=== PATIENT | male | born 1935 | race Caucasian/White ===

== ENCOUNTER → 2016-11-30 | Outpatient (CLI) | payer OTHER, MEDICARE ==
[~2016-11-30] VITALS: Ht 177.8 cm; Wt 98.9 kg
[~2016-11-30] MED LIST: BENICAR40 MG PO; BUMETANIDE0.25 MG/1 PO; FENOFIBRATE160 MG PO; GLUCOPHAGE XR500 MG PO; PRAVACHOL40 MG PO; PROPRANOLOL 1010 MG PO; UROCIT-K5 ME1 PO
--- NOTE | ~2016-11-30 | H ---
[facility] [place] [place] [address] HISTORY AND PHYSICAL Name: SPENCER WELDON Room #: REG BHAVIK MartinezJacklyn#: [id number] Admission: 11/30/16 Attend Phys: Johnson Wyman MD, Discharge: Date of : 36 Report #: [id number] THIS REPORT FOR: //name// CC: Johnson Lay DO DATE OF SERVICE: 11/30/2016 HISTORY OF PRESENT ILLNESS: An 81-year-old male admitted today for cardiac catheterization. He has been having some accelerating anginal symptoms. He does have documented coronary artery disease with a prior LAD stent in 2007. There has been decrease in exercise tolerance. Ejection fraction has been fairly well preserved. Nuclear stress testing suggests there has been a fair amount of ischemia noted in the mid inferior lateral basilar wall consistent with possible circumflex distribution and this was a definite change on his nuclear studies from April 2013. He has been compliant with medications. He is not terribly active. He is a diabetic and has held his metformin for this procedure. He is also on Bumex, potassium, Inderal 10 b.i.d., pravastatin 40, Benicar 40 and a baby aspirin. PAST MEDICAL HISTORY: Positive for coronary artery disease with a stent placement, diabetes, hypertension, hypercholesterolemia, prostate cancer, benign intention tremor, macular degeneration, DJD. FAMILY HISTORY: Mother was a diabetic. There is no other premature coronary disease. SOCIAL HISTORY: He is , never tobacco, no alcohol use. He is retired. ALLERGIES: Furosemide. REVIEW OF SYSTEMS: Essentially negative except for some occasional bowel issues and hesitancy. PHYSICAL EXAMINATION: VITAL SIGNS: Blood pressure is 180/106, pulse 69. HEENT: Eyes reveal xanthelasmas. Pharynx is clear. NECK: Shows preserved upstrokes without JVD or bruits. LUNGS: Clear. CARDIAC: Regular rate and rhythm, S1, S2. ABDOMEN: Slightly obese, nontender. EXTREMITIES: Reveal trace of edema. His pulses were intact. NEUROLOGIC: Nonfocal. There was a subtle resting tremor. MUSCULOSKELETAL: Generalized arthritic changes. SKIN: Warm and dry without xanthoma or ulcer. [facility] [address] [place] [address] HISTORY AND PHYSICAL Name: SPENCER WELDON Room #: REG [facility] Juan.#: [id number] Admission: 11/30/16 Attend Phys: Johnson Wyman MD, Discharge: Date of : 36 Report #: [id number] ASSESSMENT: 1. Coronary artery disease with abnormal nuclear test suggesting inferior lateral ischemia, prior LAD stent. 2. Hypertension. 3. Hypercholesterolemia. 4. Diabetes. 5. Degenerative joint disease. RECOMMENDATIONS AND PLAN: We have held the metformin. IV fluids have been given. We will proceed further cardiac catheterization and possible intervention. Risks, benefits, alternatives were discussed with the patient and he does elect to proceed. Thank you for asking us to assist in the care of this patient. <ELECTRONICALLY SIGNED> By: Johnson Wyman MD, FAC 11/30/16 1232 [phone] Johnson Wyman MD, [facility] /nt
--- NOTE | ~2016-11-30 | CATHLAB ---
[facility] [address] [employer] [place] [address] INVASIVE PROCEDURE REPORT Name: SPENCER WELDON KALYAN Room #: REG Karen#: [id number] Admission: 11/30/16 Attend Phys: Johnson Wyman, Discharge: Date of : 37 Date of Service: 12/12/16 1012 Report #: [id number] THIS REPORT FOR: //name// APPROVED REPORT Patient Details Patient Status: Out-Patient Room #: The patient is a 81 year-old male Event Personnel Johnson Wyman Industrial Mechanic, Akshat Craig RN, Nely Merrill RN RN, Melyssa Up Sandifer, David Monitor Procedures Performed 28166 Initial Mod Sed Same Phys/QHP Gr5y [id number] 10972 Mod Sed Same Phys/QHP Ea 428227 Left Heart Cath w/or w/o Coronaries [id number] [facility] Aortogram Abdominal Peripheral Angio [id number] Hemostasis w/ Mynx Procedure Narrative The patient was brought electively to the Cardiac Catheterization Laboratory and was prepped and draped in a sterile manner. The right femoral was infiltrated with 1% Lidocaine subcutaneous anesthesia. A PINNACLE 6FR Sheath #[id number] sheath was inserted into the RFA^. Coronary angiography was performed using coronary diagnostic catheters. The right coronary system was accessed and visualized with a JR4 catheter. The left coronary system was accessed and visualized with a 6FR AL II #[id number] catheter. The left ventricle was accessed and visualized with a PIGTAIL catheter. Left ventricular/Aortic Valve gradient assessed via catheter pullback. Left ventriculogram was performed in VILLATORO projection. An aortogram of the ascending aorta was performed. Pre-demployment femoral angiogram was performed . Closure device was deployed with a 6 Fr Mynx. The patient tolerated the procedure well and there were no complications associated with the procedure. There was no hematoma. Intraoperative Conscious Sedation Sedation start time: 08:01 Case end Time: 08:33 Fentanyl 25.0 mcg Versed 1.0 mg Fluoro Time: 10.00 minutes Dose: 1346 mGy Contrast Type and Amount: Visipaque [address] [address] INVASIVE PROCEDURE REPORT Name: FATEMEHSPENCERBLAIR BIGGS Room #: CARLOS A Jones#: [id number] Admission: 11/30/16 Attend Phys: Johnson Wyman, Discharge: Date of : 37 Date of Service: 12/12/16 1012 Report #: [id number] Hemodynamics The aortic pressure is 137/115 mmHg with a mean of 127 mmHg. The left ventricular pressure is 188/15 mmHg with a mean of mmHg. The left ventricular end diastolic pressure is 18 mmHg. Conclusion #1 normal left ventricular size ejection fraction lower limits of normal 50% range in a global fashion #2 the abdominal aorta is intact there is an extremely tortuous proximal descending aorta and iliac system which makes significant technical difficulty for crossing into the ascending aorta. No abdominal aneurysm or significant plaque is noted in renal arteries appear mildly diseased #3 the dominant right coronary artery eccentric mid vessel lesion of 40-50% a distal bifurcating lesion of 70% which involves the ostium of the PDA and RIDGE would continue to treat this medically. #4 mid posterior lateral branch is subtotally occluded but spilling a small distal system diffusely diseased caliber of this vessel would be approximately 1.5 mm #5 left main free of disease giving rise to LAD and circumflex #6 LAD is moderately disease 4050% proximal lesion relatively small caliber diffusely diseased mid vessel lesion of 80% appears to be approximately 20 vessel. Diagonal system is widely patent #7 circumflex OM extensively calcified eccentric lesion of 50% proximal mid and mid filling a large OM branch which is well preserved Recommendations and plan there will be extreme technical difficulty for percutaneous intervention due to the significant tortuosity of the iliac and descending aorta. Large and ectatic. The moderate diffuse nature of this disease age and other comorbidities patient is Maddison served with medical therapy aggressively. Either percutaneous intervention or recatheterization by bypass would not be terribly favorable for him. Relatively asymptomatic we'll advance medical therapy and continued observation. No lifting for 48 hours no lying in tub Jacuzzi or [place]arez for a week. Follow-up scheduled 3 months in the office <ELECTRONICALLY SIGNED> By: Johnson Wyman MD, FACC 12/12/16 1012 1012 1012 Johnson Wyman MD, FACC /INF
[2016-11-30 07:25] VITALS: BP 156/96
[2016-11-30 07:41] LABS: HEMATOCRIT 47.7 % (42.0-52.0); HEMOGLOBIN 15.9 gm/dL (14.0-18.0); MCH 28.6 pg (26.0-34.0); MCHC 33.3 g/dL (28.0-37.0); RBC 5.54 mil/uL (4.50-6.00); RDW 13.7 % (10.5-14.5); WBC 7.6 thou/uL (4.0-11.0)
[2016-11-30 07:49] LABS: CALCIUM 9.7 mg/dL (8.5-10.1); CREATININE 1.4 mg/dL (0.7-1.3); POTASSIUM 3.7 mmol/L (3.5-5.1)
== END | disposition home or self-care (01) ==
LOC: CATH 07:00
PROVIDERS: Internal Medicine Cardiovascular Disease
DX: I25.10 Atherosclerotic heart disease of native coronary artery without angina pectoris (principal); I10 Essential (primary) hypertension; E78.00 Pure hypercholesterolemia, unspecified; E11.9 Type 2 diabetes mellitus without complications; M19.90 Unspecified osteoarthritis, unspecified site; Z88.8 Allergy status to other drugs, medicaments and biological substances; Z83.3 Family history of diabetes mellitus; Z95.1 Presence of aortocoronary bypass graft; Z85.46 Personal history of malignant neoplasm of prostate; H35.30 Unspecified macular degeneration; Z79.84 Long term (current) use of oral hypoglycemic drugs

== ENCOUNTER 2018-08-10 13:55 | Inpatient (IN) | payer OTHER, MEDICARE ==
[~2018-08-10] VITALS: Ht 177.8 cm; Wt 99.8 kg
--- NOTE | ~2018-08-10 | PLAN ---
[facility] [place] [address] REHAB UNIT PLAN OF CARE Name: SPENCER WELDON Room #: 204-P ADM IN M.R.#: [id number] Admission: 08/10/18 ������������������ Attend Phys: Contreras Perera MD Discharge: ������������������ Date of : 36 Report #: [id number] THIS REPORT FOR: //name// CC: Contreras Perera NEUROLOGY CONSULTATION HISTORY OF PRESENT ILLNESS: The patient is an 83-year-old male who lives in [place], [place]. In fact, I saw the patient in 2013 and he was diagnosed with essential tremor at that time. The patient now comes to the hospital with dizziness and generally not feeling well. Apparently, he takes care of his who has Alzheimer disease. The patient does not sleep well at night because his sometimes wanders the house; and while he is here in the hospital, one of his daughters is here with him and the other daughter is helping to take care of his . The patient states that he has not been feeling well for the past 3 weeks. He has generalized weakness involving the arms and legs. He is also being worked up to have a 15-mm kidney stone removed, but in order for this to be done, the patient requires cardiac clearance. The patient is aware that he has diabetic neuropathy and also told me that he was aware that it can affect his balance. The reason for the Neurology consult is because the patient has staring off episodes and absence seizures would like to be ruled out. Apparently, this happens and has been noticed by the patient's several times a day. It may last no more than 30 seconds, and when she calls his name, he comes out of it. The patient has never had anything like this before. PAST MEDICAL HISTORY: Quezada's palsy, coronary artery disease, chronic obstructive pulmonary disease, diabetes mellitus, degenerative joint disease, hypertension, macular degeneration of the right eye, prostate cancer and essential tremor. PAST SURGICAL HISTORY: Coronary artery stents. MEDICATIONS AT HOME: Include ranitidine 150 mg b.i.d., amlodipine 5 mg daily, irbesartan 300 mg daily, metformin 1500 mg b.i.d., Bystolic 20 mg daily, Levemir 20 units b.i.d., aspirin 81 mg daily, fenofibrate 160 mg daily, potassium 5 mEq daily and pravastatin 40 mg daily. ALLERGIES: FUROSEMIDE. VITAL SIGNS: Temperature 36.8, pulse rate 61 with the lowest pulse rate 56, respiratory rate 20, blood pressure 172/96 with the lowest pressure being 132/65 [place] [address] REHAB UNIT PLAN OF CARE Name: SPENCER WELDON Room #: 204-[facility] IN [facility].#: [id number] Admission: 08/10/18 ������������������ Attend Phys: Contreras Perera MD Discharge: ������������������ Date of : 36 Report #: [id number] and bedside pulse oximetry 95% on room air. LABORATORY DATA: Hematology: White blood cell count 5.4, hemoglobin 15.1, hematocrit 44.7, MCV 86.1 and platelet count 194,000. Urinalysis, trace protein and 1+ blood. Chemistry: Sodium 142, potassium 3.8, chloride 106, carbon dioxide 28, BUN 25, creatinine 1.3, glucose 116 and calcium 9.6. Magnesium 2.0. Liver functions normal. Triglycerides 156, cholesterol 121, LDL cholesterol 59 and HDL cholesterol 31. B12 of 199. TSH of 3.451. IMAGING: Carotid Doppler study demonstrates less than 10% stenosis bilaterally. NEUROLOGICAL EXAMINATION: Cranial nerves 2-12 are grossly intact. Motor exam demonstrates symmetrical strength in all 4 extremities, with tone and bulk normal. Reflexes are trace. Coordination demonstrates no evidence of dysmetria. IMPRESSION: Just reviewing the patient's lab work. He has B12 deficiency and should be given vitamin B12 at 1000 mcg subcutaneous daily for a total of 3 doses. This will need to be followed by his family physician to see whether or not the patient will require monthly or perhaps bimonthly injections or whether this can be treated with oral B12. For the generalized weakness, I have ordered an MRI of the cervical and lumbar spine to evaluate for spinal stenosis. With regard to the staring off spells, an EEG has been ordered; however, it would be unusual for someone this age to develop absence-type seizures. The patient is also under significant stress with his . One of his daughters is retiring and will be helping him in the very near future. Dr. García will be following the patient as of Sunday. I thank you for your kind referral of this patient. ��������������������������������������������� ���������������������������������������� By: ��������������������������������������������� 1021 0204 Tala Wolf, /nt
--- NOTE | ~2018-08-10 | EEG ---
[facility] [place] [address] [address] [place] [address] ELECTROENCEPHALOGRAM Name: SPENCER WELDON Room #: 204-P ADM IN M.R.#: [id number] ������������������ Admission: 08/10/18 ������������������ Attend Phys: Contreras Perera MD Discharge: ������������������ Date of : 36 Report #: [id number] ����������������������������������������������������������������� [id number] THIS REPORT FOR: //name// CC: Contreras Perera DATE OF SERVICE: 08/11/2018 This patient is being evaluated for dizziness. EEG was done by placing the electrode by standard 10-20 system of electrode placement. Both referential and sequential montages were used for recording. Background activity in this patient's EEG is about 9 Hz and 30 microvolt. This is a symmetrical activity. The patient became drowsy that was associated with bilateral slowing. Photic stimulation was unremarkable. Throughout the record, no active epileptiform activity was noticed. IMPRESSION: This patient's EEG is unremarkable. No active epileptiform activity was noticed during this record. Thank you very much for this referral. ���������������������������������������� ���������������������������������������� By: ��������������������������������������������� [phone] Chaim García MD /nt
[2018-08-10 15:35] VITALS: BP 175/85
--- NOTE | 2018-08-10 16:24 | NUR ---
ARRIVED FROM [facility] DIRECT ADMIT DAUGHTER PROVIDED TRANSPORT. AAOX4 VERY PLESANT AND COOPERATIVE. SKIN INTACT. RESP EVEN AND UNLABORED ON ROOM AIR. NO DISTRESS NO COMPLAINTS DENIES PAIN. AMBULATES WITH SLOW STEADY GAIT. CAME TO HOSPITAL BECAUSE HE HAS BEEN FEELING WEAK AND DIZZY FOR A FEW DAYS. ACCOMPANITED BY AND DAUGHTER. SALINE LOCK LEFT WRIST.
[2018-08-10 17:09] LABS: HEMATOCRIT 44.4 % (42.0-52.0); MCHC 33.6 g/dL (28.0-37.0); MCV 86.2 fL (80.0-100.0); RBC 5.16 mil/uL (4.50-6.00); RDW 13.7 % (10.5-14.5); WBC 6.1 thou/uL (4.0-11.0)
[2018-08-10] MEDS ORDERED: JANUVIA 50 MG T50 M1 PO (17:18)
[2018-08-10] MEDS ORDERED: ZANTAC 150MG T150 MG PO (17:22)
[2018-08-10] MEDS ORDERED: NORVASC5 MG PO (17:22)
[2018-08-10] MEDS ORDERED: POTASSIUM CITR10 ME1 PO (17:23)
[2018-08-10] MEDS ORDERED: METFORMIN HCL1000 MG PO (17:24)
[2018-08-10] MEDS ORDERED: IRBESARTAN300 MG PO (17:24)
[2018-08-10] MEDS ORDERED: BYSTOLIC20 MG PO (17:25)
[2018-08-10 17:27] LABS: ALBUMIN 3.5 g/dL (3.4-5.0); MAGNESIUM 1.8 mg/dL (1.8-2.4); TROPONIN-I 0.15 ng/mL (<0.06)
[2018-08-10] MEDS ORDERED: LEVEMIR FL100 UNIT/2 (17:27)
[2018-08-10] MEDS ORDERED: AMOX TR-K CLV1 EAC4 PO (17:30)
[2018-08-10] MEDS ORDERED: ASPIRIN81 M2 PO (17:36)
[2018-08-10 18:09] LABS: TSH 3.451 uIU/mL (0.358-3.740)
[2018-08-10 19:14] VITALS: BP 132/65
[2018-08-10 19:52] LABS: ALBUMIN 3.6 g/dL (3.4-5.0); CALCIUM 9.3 mg/dL (8.5-10.1); CREATININE 1.2 mg/dL (0.7-1.3); POTASSIUM 3.9 mmol/L (3.5-5.1); TOTAL BILIRUBIN 0.8 mg/dL (<0.1-1.0)
[2018-08-10 19:54] LABS: CHOLESTEROL 121 mg/dL (<200); HDL CHOLESTEROL 31 mg/dL (>40); LDL CHOLESTEROL 59 mg/dL (<100); TC:HDL 3.9 Ratio (Not establshd); TRIGLYCERIDE 156 mg/dL (<150); VLDL 31 mg/dL (<40)
[2018-08-11 03:32] LABS: HEMATOCRIT 44.7 % (42.0-52.0); HEMOGLOBIN 15.1 gm/dL (14.0-18.0); MCHC 33.7 g/dL (28.0-37.0); MCV 86.1 fL (80.0-100.0); RBC 5.19 mil/uL (4.50-6.00); RDW 13.7 % (10.5-14.5); WBC 5.4 thou/uL (4.0-11.0)
[2018-08-11 03:56] LABS: CALCIUM 9.6 mg/dL (8.5-10.1); CREATININE 1.3 mg/dL (0.7-1.3); POTASSIUM 3.8 mmol/L (3.5-5.1); TROPONIN-I 0.13 ng/mL (<0.06)
[2018-08-11 04:04] VITALS: BP 153/90
--- NOTE | 2018-08-11 06:48 | NUR ---
ASSESSMENT DOCUMENTEED.PT HAS BEEN RESTING IN NO ACUTE DISTRESS.VSS.UP WITH ASSIST TO BR.DENIES DIZZINESS OR ANY NEEDS AT THIS TIME.PT TO HAVE ECHO TODAY ADN F/U WITH NEUROLOGY AND CARDIOLOGY.WILL CONTINUES TO MONITOR.
[2018-08-11 07:24] VITALS: BP 172/96
[2018-08-11 09:20] LABS: URINE BILIRUBIN NEGATIVE (Negative); URINE BLOOD 1+ (Negative); URINE CLARITY CLEAR; URINE COLOR YELLOW; URINE GLUCOSE-RANDOM* NEGATIVE (Negative); URINE KETONES NEGATIVE (Negative); URINE LEUKOCYTES-REFLEX NEGATIVE (Negative); URINE NITRITE-REFLEX NEGATIVE (Negative); URINE PROTEIN (DIPSTICK) TRACE (Negative); URINE SPECIFIC GRAVITY 1.015 (1.005-1.035)
[2018-08-11 09:41] LABS: BACTERIA-REFLEX None Seen /HPF (None Seen); CASTS None Seen /LPF (None Seen); CRYSTALS None Seen /LPF (None Seen); SQUAMOUS None Seen /LPF (0-3); URINE RBC 3-10 Few /HPF (0-2); URINE WBC-REFLEX None Seen /HPF (0-5)
[2018-08-11 15:20] VITALS: BP 131/78
--- NOTE | 2018-08-11 17:21 | NUR ---
ASSUMED CARE AT 0700, AWAKE AND ALERT IN BED. NO COMPLAINTS OF CP, NAUSEA OR VOMITING. STATES DIZZINESS IS MUCH BETTER. WANTS TO BE TAKEN OFF OF HIGH FALL RISK BUT EXPLAINED THAT HE IS STILL AT RISK UNTIL ALL TESTING AND RESULTS COME IN. EEG COMPLETED TODAY AND ECHO. HE WILL BE NPO AFTER MN FOR STRESS TEST. RESTING COMFORTABLY AND NO COMPLAINTS AT THIS TIME.
[2018-08-11 19:55] VITALS: BP 141/73
[2018-08-11 23:18] VITALS: BP 141/73
[2018-08-12 03:02] LABS: HEMATOCRIT 41.7 % (42.0-52.0); MCH 28.7 pg (26.0-34.0); MCHC 33.5 g/dL (28.0-37.0); MCV 85.6 fL (80.0-100.0); RBC 4.87 mil/uL (4.50-6.00); RDW 13.2 % (10.5-14.5); WBC 5.8 thou/uL (4.0-11.0)
[2018-08-12 03:19] LABS: CALCIUM 9.1 mg/dL (8.5-10.1); CREATININE 1.2 mg/dL (0.7-1.3); MAGNESIUM 1.8 mg/dL (1.8-2.4); POTASSIUM 3.7 mmol/L (3.5-5.1); TROPONIN-I 0.09 ng/mL (<0.06)
--- NOTE | 2018-08-12 04:01 | NUR ---
ASSUMED CARE 1900. VSS. ASSESSMENT CHARTED. PT DENIES, CP, SOA, DIZZINESS, N/V. ST BY TO BATHROOM TO MONITOR FOR DIZZINESS, STEADY ON FEET. SLEEPING WELL THROUGH NIGHT. PLAN FOR NM STRESS TEST THIS AM. NPO AT MIDNIGHT. WILL CONTINUE TO MONITOR AND WITH POC.
[2018-08-12 04:55] VITALS: BP 144/69
[2018-08-12 07:17] VITALS: BP 129/78
--- NOTE | 2018-08-12 08:41 | EKG ---
[address] [place] [address] ELECTROCARDIOGRAM REPORT Name: SPENCER WELDON Room #: 204-P ADM IN M.R.#: [id number] ������������������ Admission: 08/10/18 ������������������ Attend Phys: Contreras Perera MD Discharge: ������������������ Date of : 37 Report #: [id number] ����������������������������������������������������������������� [id number] THIS REPORT FOR: //name// [facility] Test Date: 2018-08-10 Test Time: 16:39:21 Pat Name: SPENCER WELDON Department: Room: 204 P Gender: M Driver Helper: : 1935 Requested By: Ashu Jaimes Order Number: [id number] MD: Gage Biggs Measurements Intervals [place] Rate: 62 P: -31 MN: 285 QRS: 21 QRSD: 97 T: 19 QT: 414 QTc: 421 Interpretive Statements Sinus rhythm Prolonged MN interval Inferior infarct, old Compared to ECG 07/02/2013 07:49:29 First degree AV block now present Electronically Signed On 08-12-2018 8:41:19 CDT by Gage Biggs [email or web address] ��������������������������������������������� <ELECTRONICALLY SIGNED> ���������������������������������������� By: Gage Biggs MD, [facility] ��������������������������������������������� 08/12/18 0841 [id number] [id number] Gage Biggs MD, [facility] /EPI
--- NOTE | 2018-08-12 09:00 | EKG ---
[place] [address] [facility] [email or web address] [address] ELECTROCARDIOGRAM REPORT Name: SPENCER WELDON KALYAN Room #: 204-P ADM IN M.R.#: [id number] ������������������ Admission: 08/10/18 ������������������ Attend Phys: Contreras Perera MD Discharge: ������������������ Date of : 37 Report #: [id number] ����������������������������������������������������������������� [id number] THIS REPORT FOR: //name// [facility] Test Date: 2018-08-12 Test Time: 07:53:50 Pat Name: SPENCER WELDON Department: Room: 204 P Gender: M Elephant Keeper: Farhat GROSS : 1935 Requested By: Mary Sharma Order Number: [id number] MD: Gage Biggs Measurements Intervals Exchange Rate: 63 P: -36 CT: 309 QRS: 30 QRSD: 97 T: 27 QT: 424 QTc: 435 Interpretive Statements Sinus rhythm Prolonged CT interval Probable left atrial enlargement Inferior infarct, old Compared to ECG 07/02/2013 07:49:29 No significant change was found Electronically Signed On 08-12-2018 9:00:14 CDT by Gage Biggs [email or web address] ��������������������������������������������� <ELECTRONICALLY SIGNED> ���������������������������������������� By: Gage Biggs MD, [facility] ��������������������������������������������� 08/12/18 0900 0753 0753 Gage Biggs MD, [facility] /EPI
[2018-08-12 12:00] VITALS: BP 146/77
--- NOTE | 2018-08-12 12:10 | 2DMMODE ---
[facility] [address] [place] [address] 2 D/M-MODE ECHOCARDIOGRAM Name: SPENCER WELDON IMPERIAL Room #: 204-P ADM IN M.R.#: [id number] ������������� Admission: 08/10/18 ������������� Attend Phys: Contreras Perera MD Discharge: ��� ������������� ��� Date of : 37 Date of Service: 08/12/18 1210 �� Report #: [id number] �������� ��������������������������������������������[id number] THIS REPORT FOR: //name// APPROVED REPORT Study performed: 08/12/2018 09:07:32 EXAM: Comprehensive 2D, Doppler, and color-flow Echocardiogram Patient Location: Bedside Room #: 204 Status: routine BSA: 2.17 HR: 57 bpm BP: 129/78 mmHg Rhythm: NSR Other Information Study Quality: Adequate Risk Factors: Cardiac Risk Factors: HTN, Hyperlipidemia, DM Indications COPD CAD Elevated Troponin Weakness 2D Dimensions IVSd: 8.80 (7-11mm) LVOT Diam: 19.00 (18-24mm) LVDd: 41.07 mm PWd: 11.29 (7-11mm) Ascending Ao: 39.95 (22-36mm) LVDs: 26.69 (25-40mm) Aortic Root: 35.09 mm LV Single Plane 4CH: 68.85 % LV Single Plane 2CH: 64.62 % Biplane EF: 68.0 % Volumes Left Atrial Volume (Systole) Single Plane 4CH: 43.34 mL Single Plane 2CH: 36.88 mL LA ESV Index: 21.00 mL/m2 Aortic Valve [facility] [place] [email or web address] [address] 2 D/M-MODE ECHOCARDIOGRAM Name: SPENCER WELDON IMPERIAL Room #: 204-P ADM IN M.R.#: [id number] ������������� Admission: 08/10/18 ������������� Attend Phys: Contreras Perera MD Discharge: ��� ������������� ��� Date of : 37 Date of Service: 08/12/18 1210 �� Report #: [id number] �������� ��������������������������������������������[id number] AoV Peak Manuel.: 1.39 m/s AO Peak Gr.: 7.77 mmHg LVOT Max P.77 mmHg LVOT Max V: 0.97 m/s TRISTA Vmax: 1.89 cm2 AI Vmax: 4.51 m/s AI Erie: 1.13 m/s2 AI PHT: 1168.29 ms Mitral Valve E/A Ratio: 0.7 MV Decel. Time: 394.76 ms MV E Max Manuel.: 0.88 m/s MV A Manuel.: 1.28 m/s MV PHT: 114.48 ms IVRT: 59.98 ms TDI E/Lateral E': 12.57 E/Medial E': 17.60 Medial E' Manuel.: 0.05 m/s Lateral E' Manuel.: 0.07 m/s Pulmonary Valve PV Peak Manuel.: 0.73 m/s PV Peak Gr.: 2.14 mmHg Pulmonary Vein P Vein S: 0.65 m/s P Vein A: 0.22 m/s P Vein D: 0.29 m/s P Vein A Dur.: 152.2 msec P Vein S/D Ratio: 2.24 Tricuspid Valve RAP Estimate: 7.00 mmHg Left Ventricle The left ventricle is normal size. There is normal LV segmental wall motion. There is normal left ventricular wall thickness. Left ventricular systolic function is normal. The left ventricular ejection fraction is within the normal range. LVEF is 60-65%. Mild diastolic dysfunction is present (impaired relaxation pattern). Right Ventricle The right ventricle is normal size. The right ventricular systolic function is normal. Atria The left atrium size is normal. The right atrium size is [facility] [address] [place] [address] 2 D/M-MODE ECHOCARDIOGRAM Name: SPENCER WELDON IMPERIAL Room #: 204-P [facility] IN M.R.#: [id number] ������������� Admission: 08/10/18 ������������� Attend Phys: Contreras Perera MD Discharge: ��� ������������� ��� Date of : 37 Date of Service: 08/12/18 1210 �� Report #: [id number] �������� ��������������������������������������������[id number] normal. Aortic Valve The aortic valve is normal in structure. Mild aortic regurgitation. There is no aortic valvular stenosis. Mitral Valve There is mitral annular calcification. There is no mitral valve regurgitation noted. No evidence of mitral valve stenosis. Tricuspid Valve The tricuspid valve is normal in structure. Trace tricuspid regurgitation. Unable to assess PA pressure. Pulmonic Valve The pulmonary valve is normal in structure. There is no pulmonic valvular regurgitation. Great Vessels The aortic root is normal in size. The ascending aorta measures 4.0 cm. IVC is normal in size and collapses >50% with inspiration. Pericardium There is no pericardial effusion. <Conclusion> The left ventricle is normal size. LVEF is 60-65%. Mild diastolic dysfunction is present (impaired relaxation pattern). The right ventricle is normal size. The left atrium size is normal. Mild aortic regurgitation. There is no mitral valve regurgitation noted. Trace tricuspid regurgitation. Unable to assess PA pressure. The aortic root is normal in size. There is no pericardial effusion. The ascending aorta measures 4.0 cm. ��������������������������������������������� <ELECTRONICALLY SIGNED> ���������������������������������������� By: Johnson Wyman MD, FACC ��������������������������������������������� 08/12/18 1210 1210 1210 Johnson Wyman MD, FACC /INF
[2018-08-12 15:19] VITALS: BP 162/80
--- NOTE | 2018-08-12 16:25 | NUR ---
met with patient and dtr at bedside. Patient resides in [place] with in independent home. All needs on one level in home. patient drives and independent with adls user acceptance tester. patient drives to dialysis 3x a week to [place] dialysis clinic. Dtr reports she and sister live in [place] and check on parents weekly. While patient in hospital friend assisting with transportation to dialysis clinic. Patient and dtr hopeful for dc today. Discussed his strength and dtr reports he is able to ambulate to bathroom here and no concerns for dc today.
[2018-08-12 19:46] VITALS: BP 158/92
[2018-08-13 01:52] VITALS: BP 158/92
--- NOTE | 2018-08-13 03:39 | NUR ---
ASSUMED CARE 1900. VSS. ASSESSMENT CHARTED. PT DENIES CP, DIZZINESS, SOA, N/V OR CONCERN. SLEEPING WELL THROUGH OUT NIGHT. PT HOPEFUL IF SCANS ARE GOOD HE CAN GO HOME SOON. PLAN FOR MRI TODAY. WILL CONTINUE TO MONITOR AND WITH POC.
[2018-08-13 03:40] LABS: CREATININE 1.4 mg/dL (0.7-1.3); MAGNESIUM 1.9 mg/dL (1.8-2.4); POTASSIUM 3.9 mmol/L (3.5-5.1)
[2018-08-13 04:12] VITALS: BP 160/81
[2018-08-13 05:01] LABS: HEMATOCRIT 41.8 % (42.0-52.0); HEMOGLOBIN 14.1 gm/dL (14.0-18.0); MCH 29.1 pg (26.0-34.0); MCHC 33.9 g/dL (28.0-37.0); MCV 85.9 fL (80.0-100.0); RBC 4.86 mil/uL (4.50-6.00); RDW 13.8 % (10.5-14.5); WBC 5.7 thou/uL (4.0-11.0)
[2018-08-13 07:56] VITALS: BP 139/75
--- NOTE | 2018-08-13 09:22 | EKG ---
[address] [place] [address] ELECTROCARDIOGRAM REPORT Name: SPENCER WELDON Room #: 204-P ADM IN M.R.#: [id number] ������������������ Admission: 08/10/18 ������������������ Attend Phys: Contreras Perera MD Discharge: ������������������ Date of : 37 Report #: [id number] ����������������������������������������������������������������� [id number] THIS REPORT FOR: //name// [facility] Test Date: 2018-08-13 Test Time: 07:14:09 Pat Name: SPENCER WELDON Department: Room: 204 P Gender: M Stitch Cleaner: BERENICE : 1935 Requested By: Mary Sharma Order Number: [id number] MD: Gage Biggs Measurements Intervals [place] Rate: 60 P: -18 WA: 315 QRS: 53 QRSD: 100 T: 47 QT: 439 QTc: 439 Interpretive Statements Sinus rhythm Prolonged WA interval Early R-wave progression Compared to ECG 08/12/2018 07:53:50 Inferior Q waves are less prominent Electronically Signed On 08-13-2018 9:22:19 CDT by Gage Biggs [email or web address] ��������������������������������������������� <ELECTRONICALLY SIGNED> ���������������������������������������� By: Gage Biggs MD, [facility] ��������������������������������������������� 08/13/18921 3 3 Gage Biggs MD, [facility] /EPI
[2018-08-13 14:59] VITALS: BP 136/81
[2018-08-13] MEDS ORDERED: BYSTOLIC 5 MG5 M1 PO (15:15)
[2018-08-13] MEDS ORDERED: LIPITOR 20 MG T20 M1 PO (15:15)
[2018-08-13] MEDS ORDERED: XARELTO20 MG PO (15:16)
[2018-08-13 15:34] VITALS: BP 136/81
--- NOTE | 2018-08-13 16:02 | NUR ---
PATIENT DISCHARGED HOME WITH DAUGHTER. THEY WILL GO TO DR[facility] LOUISE OFFICE TODAY AND GET A HALTER MONITOR AND XARALTO SAMPLES. ADMITTED WITH DIZZINES AND POSSIBLE FOCAL "EPISODES" WHERE HE WOULD STARE OFF FOR SHORT LENGTH OF TIME. MRI SHOWS MULTIPLE AREAS OF INFARCT POSSIBLE FROM EMBOLI. DISCHARGED IN STABLE CONDITION VIA WHEELCHAIR WITH DAUGHTER
== END 2018-08-13 16:00 | disposition home or self-care (01) | DRG 66 ==
LOC: 2N 13:55 → ENTRNSPT 08-13 15:53 → 2N 08-13 16:00
PROVIDERS: Internal Medicine; ADMIT Internal Medicine
DX: I63.9 Cerebral infarction, unspecified (principal); I44.0 Atrioventricular block, first degree; N18.3 Chronic kidney disease, stage 3 (moderate); E11.40 Type 2 diabetes mellitus with diabetic neuropathy, unspecified; I25.10 Atherosclerotic heart disease of native coronary artery without angina pectoris; J44.9 Chronic obstructive pulmonary disease, unspecified; M19.90 Unspecified osteoarthritis, unspecified site; E53.8 Deficiency of other specified B group vitamins; E78.5 Hyperlipidemia, unspecified; R00.1 Bradycardia, unspecified; I48.0 Paroxysmal atrial fibrillation; K21.9 Gastro-esophageal reflux disease without esophagitis; M48.02 Spinal stenosis, cervical region; E11.22 Type 2 diabetes mellitus with diabetic chronic kidney disease; Z96.659 Presence of unspecified artificial knee joint; I12.9 Hypertensive chronic kidney disease with stage 1 through stage 4 chronic kidney disease, or unspecified chronic kidney disease; G25.0 Essential tremor; Z85.46 Personal history of malignant neoplasm of prostate; Z95.5 Presence of coronary angioplasty implant and graft; Z88.8 Allergy status to other drugs, medicaments and biological substances; Z87.442 Personal history of urinary calculi; Z83.3 Family history of diabetes mellitus; Z80.9 Family history of malignant neoplasm, unspecified; Z79.899 Other long term (current) drug therapy; M48.061 Spinal stenosis, lumbar region without neurogenic claudication
CPT/HCPCS: 10081; 10797

== ENCOUNTER → 2019-08-19 | Outpatient (CLI) | payer OTHER, MEDICARE ==
[~2019-08-19] MED LIST changes: +AMOX TR-K CLV1 EAC4 PO; +ASPIRIN81 M2 PO; +BYSTOLIC 5 MG5 M1 PO; +BYSTOLIC20 MG PO; +IRBESARTAN300 MG PO; +JANUVIA 50 MG T50 M1 PO; +LEVEMIR FL100 UNIT/2; +LIPITOR 20 MG T20 M1 PO; +METFORMIN HCL1000 MG PO; +NORVASC5 MG PO; +POTASSIUM CITR10 ME1 PO; +XARELTO20 MG PO; +ZANTAC 150MG T150 MG PO
== END ==
LOC: SJCVCIMAG 13:31 → SJCVC 13:31
DX: I44.0 Atrioventricular block, first degree (principal); G45.9 Transient cerebral ischemic attack, unspecified; E78.00 Pure hypercholesterolemia, unspecified; R55 Syncope and collapse; I73.9 Peripheral vascular disease, unspecified; I12.9 Hypertensive chronic kidney disease with stage 1 through stage 4 chronic kidney disease, or unspecified chronic kidney disease; N18.9 Chronic kidney disease, unspecified; R42 Dizziness and giddiness

== ENCOUNTER 2019-08-31 13:54 | Emergency (ER) | payer OTHER, MEDICARE ==
[~2019-08-31] VITALS: Ht 177.8 cm; Wt 90.7 kg
[2019-08-31 15:09] LABS: URINE BILIRUBIN 1+ (Negative); URINE BLOOD NEGATIVE (Negative); URINE CLARITY CLOUDY; URINE COLOR YELLOW; URINE GLUCOSE-RANDOM* NEGATIVE (Negative); URINE KETONES 1+ (Negative); URINE LEUKOCYTES-REFLEX NEGATIVE (Negative); URINE PROTEIN (DIPSTICK) 1+ (Negative); URINE SPECIFIC GRAVITY >= 1.030 (1.005-1.035)
[2019-08-31 15:11] LABS: ICTOTEST (BILI CONFIRMATORY) Negative (Negative); URINE NITRITE-REFLEX POSITIVE (Negative)
[2019-08-31 15:31] LABS: AMORPHOUS URATES Many /LPF (None Seen); SQUAMOUS 0-3 Few /LPF (0-3)
[2019-08-31 15:33] LABS: CASTS None Seen /LPF (None Seen)
[2019-08-31 15:34] LABS: URINE RBC 0-2 Rare /HPF (0-2); URINE WBC-REFLEX 0-5 Rare /HPF (0-5)
[2019-08-31 15:35] LABS: BACTERIA-REFLEX 1-9 Few /HPF (None Seen)
[2019-08-31 16:15] LABS: HEMATOCRIT 44.1 % (42.0-52.0); HEMOGLOBIN 14.5 gm/dL (14.0-18.0); MCH 28.7 pg (26.0-34.0); MCHC 32.9 g/dL (28.0-37.0); MCV 87.2 fL (80.0-100.0); PLATELET COUNT 184 thou/uL (150-400); RBC 5.06 mil/uL (4.50-6.00); RDW 14.6 % (10.5-14.5); WBC 7.3 thou/uL (4.0-11.0)
[2019-08-31 16:30] LABS: CALCIUM 9.3 mg/dL (8.5-10.1); CREATININE 1.6 mg/dL (0.7-1.3); POTASSIUM 4.7 mmol/L (3.5-5.1)
[2019-08-31 16:36] LABS: ALBUMIN 3.5 g/dL (3.4-5.0); TOTAL PROTEIN 6.8 g/dL (6.4-8.2)
[2019-08-31 16:41] LABS: ABSOLUTE NEUTROPHILS 5.1 thou/uL (1.4-8.2)
[2019-08-31 16:42] LABS: LARGE PLATELETS RARE; PLATELET ESTIMATE NORMAL
[2019-08-31] MEDS ORDERED: ONDANSETRON ODT8 MG PO (17:22)
[2019-08-31] MEDS ORDERED: TRAMADOL 50 MG50 MG PO (17:22)
[2019-08-31] MEDS ORDERED: CLINDAMYCIN HC300 MG PO (17:22)
[2019-08-31 18:36] VITALS: BP 160/85
== END 2019-08-31 18:36 | disposition home or self-care (01) ==
LOC: ER 13:54
PROVIDERS: Emergency Medicine
DX: S90.121A Contusion of right lesser toe(s) without damage to nail, initial encounter (principal); R11.2 Nausea with vomiting, unspecified; R42 Dizziness and giddiness; L03.115 Cellulitis of right lower limb; T36.0X5A Adverse effect of penicillins, initial encounter; T36.1X5A Adverse effect of cephalosporins and other beta-lactam antibiotics, initial encounter; T40.4X5A Adverse effect of other synthetic narcotics, initial encounter; I25.10 Atherosclerotic heart disease of native coronary artery without angina pectoris; J44.9 Chronic obstructive pulmonary disease, unspecified; I10 Essential (primary) hypertension; E78.5 Hyperlipidemia, unspecified; I48.91 Unspecified atrial fibrillation; Z79.899 Other long term (current) drug therapy; Z79.82 Long term (current) use of aspirin; Z88.8 Allergy status to other drugs, medicaments and biological substances; W20.8XXA Other cause of strike by thrown, projected or falling object, initial encounter; Y93.89 Activity, other specified; Y92.89 Other specified places as the place of occurrence of the external cause; Y99.8 Other external cause status

== ENCOUNTER → 2020-03-15 | Outpatient (CLI) | payer OTHER, MEDICARE ==
[~2020-03-15] MED LIST changes: +CLINDAMYCIN HC300 MG PO; +ONDANSETRON ODT8 MG PO; +TRAMADOL 50 MG50 MG PO
== END ==
LOC: SJCVC 11:30
PROVIDERS: ATTEND Internal Medicine Cardiovascular Disease
DX: I44.0 Atrioventricular block, first degree (principal); I25.10 Atherosclerotic heart disease of native coronary artery without angina pectoris; I12.9 Hypertensive chronic kidney disease with stage 1 through stage 4 chronic kidney disease, or unspecified chronic kidney disease; N18.9 Chronic kidney disease, unspecified; E78.00 Pure hypercholesterolemia, unspecified; I48.0 Paroxysmal atrial fibrillation; G45.9 Transient cerebral ischemic attack, unspecified; G51.9 Disorder of facial nerve, unspecified; I77.9 Disorder of arteries and arterioles, unspecified; D68.59 Other primary thrombophilia; Z79.899 Other long term (current) drug therapy

== ENCOUNTER → 2020-06-11 | Outpatient (CLI) | payer OTHER, MEDICARE | LOC: SJCVC 12:42 | PROVIDERS: ATTEND Internal Medicine Cardiovascular Disease | DX: I25.10 Atherosclerotic heart disease of native coronary artery without angina pectoris (principal); R94.31 Abnormal electrocardiogram [ECG] [EKG]; I44.0 Atrioventricular block, first degree; E78.00 Pure hypercholesterolemia, unspecified; E11.22 Type 2 diabetes mellitus with diabetic chronic kidney disease; I12.9 Hypertensive chronic kidney disease with stage 1 through stage 4 chronic kidney disease, or unspecified chronic kidney disease; N18.9 Chronic kidney disease, unspecified; I48.0 Paroxysmal atrial fibrillation; G45.9 Transient cerebral ischemic attack, unspecified; G51.0 Bell's palsy; I77.9 Disorder of arteries and arterioles, unspecified; D68.59 Other primary thrombophilia; J44.9 Chronic obstructive pulmonary disease, unspecified; Z98.890 Other specified postprocedural states; Z88.8 Allergy status to other drugs, medicaments and biological substances; Z79.84 Long term (current) use of oral hypoglycemic drugs; Z79.899 Other long term (current) drug therapy; Z82.49 Family history of ischemic heart disease and other diseases of the circulatory system ==

== ENCOUNTER → 2020-12-31 | Outpatient (CLI) | payer OTHER, MEDICARE | LOC: SJCVCIMAG 08:41 | PROVIDERS: ATTEND Internal Medicine Cardiovascular Disease | DX: I08.0 Rheumatic disorders of both mitral and aortic valves (principal); I25.10 Atherosclerotic heart disease of native coronary artery without angina pectoris; E78.00 Pure hypercholesterolemia, unspecified; E11.22 Type 2 diabetes mellitus with diabetic chronic kidney disease; I12.9 Hypertensive chronic kidney disease with stage 1 through stage 4 chronic kidney disease, or unspecified chronic kidney disease; N18.9 Chronic kidney disease, unspecified; R53.83 Other fatigue; R06.02 Shortness of breath; I48.0 Paroxysmal atrial fibrillation; G45.9 Transient cerebral ischemic attack, unspecified; G51.0 Bell's palsy; I77.9 Disorder of arteries and arterioles, unspecified; D68.59 Other primary thrombophilia; M19.90 Unspecified osteoarthritis, unspecified site; J44.9 Chronic obstructive pulmonary disease, unspecified; I48.91 Unspecified atrial fibrillation; N20.0 Calculus of kidney; H35.30 Unspecified macular degeneration; Z85.46 Personal history of malignant neoplasm of prostate; Z86.73 Personal history of transient ischemic attack (TIA), and cerebral infarction without residual deficits; Z79.84 Long term (current) use of oral hypoglycemic drugs; Z79.899 Other long term (current) drug therapy; Z88.1 Allergy status to other antibiotic agents ==